=== PATIENT | male | born 1970 | race Caucasian/White ===

== ENCOUNTER 2022-08-11 14:25 | Emergency (ER) | payer MEDICAID ==
[~2022-08-11] VITALS: Ht 180.3 cm; Wt 96.2 kg
[2022-08-11 14:37] VITALS: BP_SYST 138
--- NOTE | 2022-08-11 14:37 | NUR ---
Note liamone in EDM - 08/15/22 at 1923 by DYLON Patient triaged and placed in waiting room. VSS and patient appears in no acute distress at this time. Accompanied by SELF, awaiting available bed, and MD notified of need for MSE.
== END 2022-08-11 19:00 | disposition left against medical advice (07) ==
LOC: SED 14:25
DX: R51.9 Headache, unspecified (principal); Z53.21 Procedure and treatment not carried out due to patient leaving prior to being seen by health care provider
CPT/HCPCS: 70450-TC; 72125-TC; 76376